=== PATIENT | female | born 1960 | race Caucasian/White ===

== ENCOUNTER 2023-01-31 21:06 | Emergency (ER) | payer BC, MEDICAID ==
[~2023-01-31] VITALS: Ht 172.7 cm; Wt 73.9 kg
[~2023-01-31 21:06] MED LIST: CYCL-1 PO; HYDR-4353 PO; ORPH100T4 PO; VENL-191 PO
[2023-01-31 21:15] VITALS: BP 126/73; PULSE 76; RESP 18; TEMP 98.4; O2SAT 95
[2023-01-31 22:13] LABS: BASOPHILS # (AUTO) 0.1 X10'3 (0-0.2); EOSINOPHILS # (AUTO) 0.2 X10'3 (0-0.9); EOSINOPHILS % (AUTO) 1.6 % (0-6); HEMATOCRIT 39.7 % (35.0-45.0); HEMOGLOBIN 13.8 g/dl (12.0-16.0); LYMPHOCYTES # (AUTO) 2.1 X10'3 (1.1-4.8); MEAN CORPUSCULAR HEMOGLOBIN 32.1 PG (27.0-31.0); MEAN CORPUSCULAR HGB CONC 34.8 g/dL (33.0-36.5); MEAN CORPUSCULAR VOLUME 92.4 FL (78-98); MEAN PLATELET VOLUME 6.8 FL (7.4-10.4); MONOCYTES # (AUTO) 0.5 X10'3 (0-0.9); MONOCYTES % (AUTO) 5.5 % (2-12); NEUTROPHILS # (AUTO) 7.1 X10'3 (1.8-7.7); NEUTROPHILS % (AUTO) 70.9 % (42-75); PLATELET COUNT 404 X10'3 (140-440); RED CELL DISTRIBUTION WIDTH 13.9 % (11.5-14.5)
[2023-01-31 22:23] LABS: ALANINE AMINOTRANSFERASE 23 U/L (12-78); ALBUMIN 3.4 G/DL (3.4-5.0); ALBUMIN/GLOBULIN RATIO 0.9 (1.1-1.5); ALKALINE PHOSPHATASE 107 IU/L (46-116); ANION GAP 12 (8-16); ASPARTATE AMINO TRANSFERASE 29 U/L (10-37); BILIRUBIN,TOTAL 0.2 MG/DL (0.1-1.0); BLOOD UREA NITROGEN 17 MG/DL (7-18); BUN/CREATININE RATIO 22.4 (10.0-20.0); CALCIUM 8.6 MG/DL (8.5-10.1); CHLORIDE 104 MMOL/L (99-107); CREATININE 0.76 MG/DL (0.40-0.90); GLUCOSE 97 MG/DL (70-104); LIPASE 21 U/L (16-77); POTASSIUM 3.9 MMOL/L (3.5-5.1); SODIUM 141 MMOL/L (135-145); TOTAL CARBON DIOXIDE 25.5 MMOL/L (24-32); TOTAL PROTEIN 7.1 G/DL (6.4-8.2); eCRCL 78 ML/MIN; eGFR 77 ML/MIN
== END 2023-01-31 22:44 | disposition home or self-care (01) ==
LOC: ER 21:08
DX: R79.9 Abnormal finding of blood chemistry, unspecified (principal); Z85.9 Personal history of malignant neoplasm, unspecified; Z79.899 Other long term (current) drug therapy
CPT/HCPCS: 36415; 80053; 83690; 85025; 99283

== ENCOUNTER 2023-05-30 22:37 | Emergency (ER) | payer MEDICAID ==
[~2023-05-30] VITALS: Ht 172.7 cm; Wt 72.2 kg
[2023-05-30 22:47] VITALS: BP 165/98; PULSE 92; RESP 19; TEMP 97.7; O2SAT 97
== END 2023-05-31 04:11 | disposition left against medical advice (07) ==
LOC: ER 22:38
DX: Z46.89 Encounter for fitting and adjustment of other specified devices (principal); R10.9 Unspecified abdominal pain; Z53.21 Procedure and treatment not carried out due to patient leaving prior to being seen by health care provider
CPT/HCPCS: 99281

== ENCOUNTER 2024-01-17 09:36 | Emergency (ER) | payer MEDICAID ==
[~2024-01-17] VITALS: Ht 167.6 cm; Wt 68.2 kg
[2024-01-17 09:37] VITALS: TEMP 97.2
[2024-01-17] MEDS ORDERED: midazolam 1 mg/ML 2ml injection IV ONE (10:20)
[2024-01-17] MEDS ORDERED: LIDOcaine 2% jelly 6ml syringe ***for topical use only MM ONE (10:20)
[2024-01-17] MEDS ORDERED: HYDROmorphone 1 mg/ml syringe IV ONE (10:20)
[2024-01-17] MEDS ORDERED: LidoCAINE 2% Topical Jelly 11mL syringe (UROJET) MM ONE (10:25)
[2024-01-17 10:55] VITALS: BP 147/86; PULSE 76; RESP 17; O2SAT 99
== END 2024-01-17 10:58 | disposition home or self-care (01) ==
LOC: ER 09:37
DX: T83.020A Displacement of cystostomy catheter, initial encounter (principal); Z88.1 Allergy status to other antibiotic agents; Z88.5 Allergy status to narcotic agent; Z91.048 Other nonmedicinal substance allergy status; Z79.899 Other long term (current) drug therapy
CPT/HCPCS: 51705; 99281; 99284; A4314